=== PATIENT | male | born 1975 | race Caucasian/White ===

== ENCOUNTER 2023-12-02 12:42 | Emergency (ER) | payer OTHER, SELFPAY ==
[2023-12-02 12:56] VITALS: BP 106/73
[2023-12-02 13:20] LABS: COVID-19 Antigen Negative (Negative)
--- NOTE | 2023-12-02 13:29 | ED.GENMED ---
History of Present Illness
General
Chief Complaint: Fatigue
Source: patient
Exam Limitations: none
Time Seen by Provider: 12/02/23 13:27
Nursing documentation reviewed up to this point in time: agreed with
History of Present Illness
History of Present Illness:
48-year-old male past medical history of PTSD anxiety depression presenting to the emergency department today with concerns of exposure to a friend that had COVID. Claims that he was with him over the past few days and tested positive for COVID
today. He came for COVID test. Denies any symptoms at this point. He had 1 COVID vaccination in the past
Past History
Past History
ED Past Medical History: Psychiatric (depression) and Other (opiod abuse on Suboxone, IVDA, prev cellulitis)
ED Past Surgical History: Other (hernia , bilateral inguinal hernia repair in 1995)
Social History
Tobacco: Smoker
Alcohol: None
Drug: Former user
Personal: Single
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
Employment: Employed
Family History
Family History: Negative Diabetes, Hypertension or CAD
Review of Systems
Review of Systems
Allergies reviewed?: Yes
All Other Systems: ROS reviewed and negative except as documented in HPI and ROS
Phy Exam
Physical Exam
Physical Exam:
GENERAL: Alert , in no apparent distress
EYE: pupils equal and reactive
NECK: Supple, no significant adenopathy.
ENT: o/p clr, mmm.
CARDIAC: Regular rate and rhythm .
LUNGS: Normal respirations
ABDOMEN: Soft, without focal tenderness, no r/g, no cvat
NEUROLOGICAL: Alert and oriented, no focal neuro deficits
SKIN: Warm and dry, skin intact.
MUSCULOSKELETAL: No edema, well perfused.
PSYCH: Normal and appropriate interaction.
Course
Orders/Labs/Results
Orders:
Orders
12/02/23 13:02
COVID-19 Antigen Urgent
Source: Nasal Swab
Vital Signs
Initial and Last Documented VS:
Initial Vital Signs
Temp Pulse Resp BP Pulse Ox
99.0 F 92 16 106/73 98
12/02/23 12:56 12/02/23 12:56 12/02/23 12:56 12/02/23 12:56 12/02/23 12:56
Last Documented Vital Signs
Temp Pulse Resp BP Pulse Ox
99.0 F 92 16 106/73 98
12/02/23 12:56 12/02/23 12:56 12/02/23 12:56 12/02/23 12:56 12/02/23 12:56
MDM/Problems Addressed
MDM/Problems Addressed:
48 old male presenting to the emergency department for a COVID test. Currently asymptomatic but was exposed to COVID recently. COVID test is negative here stable for discharge given information about COVID moving forward.
*Critical Care Note
Total Time (30-74mins, 75-104mins- exclusive of procedures): Not Applicable
ED Attending Note
-
Portions of this chart may have been created with voice recognition software.� Occasional wrong word or��sound alike� substitutions may have occurred due to the inherent limitations of voice recognition software.
Discharge Plan
Departure
Patient Disposition: Home (Routine Discharge)
Date of Disposition: 12/02/23
Time of Disposition: 13:30
Patient with high blood pressure during this ER visit?: No
Condition: Good
Covid-19: Not Applicable
Discharge Problem:
Exposure to COVID-19 virus
Instructions: COVID-19 ED
Prescriptions:
No Action
buprenorphine-naloxone [Suboxone] 1 TAB.SL tablet, sublingual
8 mg sublingual BID
escitalopram oxalate 20 MG tablet
20 mg PO DAILY
brexpiprazole [Rexulti] 1 MG tablet
1 mg PO DAILY
tamsulosin 0.4 MG capsule
0.4 mg PO DAILY
amoxicillin 500 MG capsule
500 mg PO Q8H 7 Days Qty: 21 0RF
cephalexin 500 MG capsule
500 mg PO QID Qty: 20 0RF
penicillin V potassium 500 mg tablet
500 mg PO TID Qty: 30 0RF
ibuprofen 600 mg tablet
600 mg PO Q6H PRN (Reason: pain) Qty: 20 0RF
Activity Restrictions/Additional Instructions:
Your COVID test today was negative.
Interventions
Interventions:
*Risk Screen - Suicide Last Done: 12/02/23 13:22
*Neglect/Abuse Screening Last Done: 12/02/23 13:22
*ED COVID-19 Vaccine History Last Done: 12/02/23 12:56
Discharge Date and Time
Print Language: KISWAHILI
== END 2023-12-02 13:40 | disposition home or self-care (01) ==
LOC: EMR 12:42
PROVIDERS: Emergency Medicine; EMERGENCY PHYSICIAN Emergency Medicine; FAMILY PHYSICIAN Family Medicine
DX: Z20.822 Contact with and (suspected) exposure to COVID-19 (principal); R53.83 Other fatigue; F43.10 Post-traumatic stress disorder, unspecified; F41.8 Other specified anxiety disorders; F17.200 Nicotine dependence, unspecified, uncomplicated
CPT/HCPCS: 99282; 87811

== ENCOUNTER 2024-06-23 15:04 | Emergency (ER) | payer SELFPAY ==
[2024-06-23 15:37] VITALS: BP 113/81
[2024-06-23 16:20] VITALS: BMI 23.0
--- NOTE | 2024-06-23 16:22 | ED.GENMED ---
History of Present Illness
General
Chief Complaint: Skin Problem
Source: patient
Exam Limitations: none
Time Seen by Provider: 06/23/24 16:14
History of Present Illness
History of Present Illness:
48yoM with a history of anxiety, depression, and prior substance use (currently on Suboxone, sober since 2019) presenting for evaluation of a suspected wound infection. Patient works in produce. He states he was accidentally cut with a knife at
work 1 week ago. The wound was apparently bleeding for several days after this. He is having some pain in the area and redness and he is worried about infection. No drainage, fevers, chills. He denies any prior history of MRSA. Tdap reportedly
up to date.
Past History
Past History
ED Past Medical History: Psychiatric (depression) and Other (opiod abuse on Suboxone, IVDA, prev cellulitis)
ED Past Surgical History: Other (hernia , bilateral inguinal hernia repair in 1995)
Social History
Tobacco: Smoker
Alcohol: None
Drug: Former user
Personal: Single
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
Employment: Employed
Family History
Family History: Negative Diabetes, Hypertension or CAD
Phy Exam
General Physical Exam
General Presentation: well appearing and no apparent distress
General age: appears stated age
General Skin: warm
General Habitus: normal
General Mental: alert
ENT Exam
ENT Exam: normocephalic
Pulmonary Exam
Pulmonary Exam: no respiratory distress
Neurological Exam
Neurological Exam: alert
Ch[place]is Coma Scale
Eye Opening: Spontaneous
Verbal Response: Oriented
Motor Response: Obeys Commands
GCS Total Score: 15
Skin Exam
Skin Exam: warm/dry and other (Healing cuts to L index finger and R thumb that are scabbed over. There are scattered excoriations to bilateral hands/forearms. There is some erythema to both hands although no warmth present. No drainage or swelling
of digits. ROM intact. )
Course
Vital Signs
Initial and Last Documented VS:
Initial Vital Signs
Temp Pulse Resp BP Pulse Ox
97.8 F 89 16 113/81 98
06/23/24 15:37 06/23/24 15:37 06/23/24 15:37 06/23/24 15:37 06/23/24 15:37
Last Documented Vital Signs
Temp Pulse Resp BP Pulse Ox
97.8 F 89 16 113/81 98
06/23/24 15:37 06/23/24 15:37 06/23/24 15:37 06/23/24 15:37 06/23/24 15:37
MDM/Problems Addressed
Differential Diagnosis Includes:
48yoM here after accidentally cutting himself in the hands with a knife 1 week ago. C/o pain and redness and is worried he has an infection. No f/c. VSS. There are scabbed over cuts on exam with erythema to both hands. No associated warmth,
drainage, swelling. Differential diagnosis includes but is not limited to: laceration, cellulitis, no evidence of abscess/flexor tenosynovitis/NSTI
No convincing evidence of cellulitis on exam although will cover with Keflex for completeness. Advised f/u with PCP and ED return precautions discussed. He expressed understanding and is agreeable to plan. He was discharged in stable condition.
*Critical Care Note
Total Time (30-74mins, 75-104mins- exclusive of procedures): Not Applicable
ED Attending Note
-
Portions of this chart may have been created with voice recognition software.� Occasional wrong word or��sound alike� substitutions may have occurred due to the inherent limitations of voice recognition software.
Discharge Plan
Departure
Patient Disposition: Home (Routine Discharge)
Date of Disposition: 06/23/24
Time of Disposition: 16:25
Patient with high blood pressure during this ER visit?: No
Discharge Problem:
Hand abrasion, infected
Instructions: Cellulitis (Skin Infection), Adult (DC)
Prescriptions:
New
cephalexin 500 mg capsule
500 mg PO Q6H 7 Days Qty: 28 0RF
No Action
buprenorphine-naloxone [Suboxone] 1 TAB.SL tablet, sublingual
8 mg sublingual BID
escitalopram oxalate 20 MG tablet
20 mg PO DAILY
brexpiprazole [Rexulti] 1 MG tablet
1 mg PO DAILY
tamsulosin 0.4 MG capsule
0.4 mg PO DAILY
amoxicillin 500 MG capsule
500 mg PO Q8H 7 Days Qty: 21 0RF
cephalexin 500 MG capsule
500 mg PO QID Qty: 20 0RF
penicillin V potassium 500 mg tablet
500 mg PO TID Qty: 30 0RF
ibuprofen 600 mg tablet
600 mg PO Q6H PRN (Reason: pain) Qty: 20 0RF
Referrals:
[facility] [Provider Group]
[facility] [Outside]
Stand Alone Forms: Return to Work
Activity Restrictions/Additional Instructions:
Take antibiotics as prescribed.
Please follow-up with your family doctor next week. Return to the ER with any worsening symptoms, spreading redness, or fevers.
Interventions
Interventions:
*Risk Screen - Suicide Last Done: 06/23/24 15:37
*General Assessment Last Done: 06/23/24 16:20
*Neglect/Abuse Screening Last Done: 06/23/24 15:37
ED- Fall Risk Assessment Last Done: 06/23/24 16:34
*ED COVID-19 Vaccine History Last Done: 06/23/24 16:20
*Nursing Disposition Last Done: 06/23/24 16:34
ED-Skin Assessment Last Done: 06/23/24 16:24
Discharge Date and Time
Discharge Date/Time: 06/23/24 16:43
Print Language: MOLDOVAN
== END 2024-06-23 16:43 | disposition home or self-care (01) ==
LOC: EMR 15:04
PROVIDERS: EMERGENCY PHYSICIAN Student in an Organized Health Care Education/Training Program; FAMILY PHYSICIAN Family Medicine
DX: S60.519A Abrasion of unspecified hand, initial encounter (principal); L08.9 Local infection of the skin and subcutaneous tissue, unspecified; W26.0XXA Contact with knife, initial encounter; Y99.0 Civilian activity done for income or pay; F41.8 Other specified anxiety disorders; F17.200 Nicotine dependence, unspecified, uncomplicated
CPT/HCPCS: 99282

== ENCOUNTER 2025-04-30 13:31 | Emergency (ER) | payer OTHER, SELFPAY ==
[2025-04-30 13:35] VITALS: BP 108/73
[2025-04-30 13:56] LABS: Hematocrit 43.3 % (39.0-52.0); Hemoglobin 14.6 g/dL (13.0-18.0); Mean Corp Hgb Conc. 33.7 g/dL (33.0-37.0); Mean Corpuscular Volume 93.5 fL (80.0-94.0); Nucleated Red Blood Cells % 0 % (-); Platelet Count 296 10^3/uL (130-400); Red Cell Dist. Width 11.9 % (11.5-14.5)
[2025-04-30 14:21] LABS: ALT (SGPT) 53 U/L (0-50); AST (SGOT) 34 U/L (17-59); Albumin 4.5 g/dl (3.5-5.0); Alkaline Phosphatase 102 U/L (38-126); Blood Urea Nitrogen 19 mg/dl (9-20); Calcium 9.6 mg/dl (8.4-10.2); Carbon Dioxide 29 mmol/L (22-30); Chloride 103 mmol/L (98-107); Glucose 111 mg/dl (70-99); Potassium 4.6 mmol/L (3.5-5.1); Sodium 136 mmol/L (135-145); Total Protein 7.7 g/dl (6.3-8.2); eGFR > 60.00
--- NOTE | 2025-04-30 14:52 | ED.GENMED ---
History of Present Illness
General
Chief Complaint: Crisis Evaluation
Time Seen by Provider: 04/30/25 14:52
History of Present Illness
History of Present Illness:
FOCUSED PAST MEDICAL HISTORY
- PTSD, substance abuse, anxiety/depression, seizures
REVIEW OF OLD RECORDS
- The patient was seen here in 2022 with anxiety, the patient was seen as a medical clearance for incarceration in 2020, the patient was here with conduct disorder in 2019
Note:
CHIEF COMPLAINT(S)
Depression and recent substance use.
HISTORY OF PRESENT ILLNESS
The patient is a 49-year-old male with a history of mental health disorders presenting with worsened depression following discontinuation of medications. The patient reports ceasing Prozac and BuSpar (buspirone) after moving into a recovery house,
without consulting a physician due to difficulty finding one in the area. This cessation led to a significant decline in mood over the past week. The patient was recently expelled from the recovery house due to substance use, specifically fentanyl,
benzodiazepines, and alcohol, with the most recent use occurring today. The patient admits to using alcohol throughout the week and benzodiazepines for the past three days, which coincides with feelings of depression and hopelessness. He reported
experiencing severe depression and is exploring options for inpatient treatment. The patient denies immediate suicidal ideation but describes a severe depressive state, stating, �I have not been feeling good about myself.�
CHRONIC MEDICAL CONDITIONS SIGNIFICANTLY AFFECTING CARE
The patient reports a history of post-traumatic stress disorder (PTSD), bipolar disorder, and anxiety.
SOCIAL DETERMINANTS AFFECTING HEALTH
The patient describes housing instability after being expelled from a recovery house due to substance use. Currently, he has no stable accommodation. He has insurance coverage through [employer] but expresses challenges in accessing continuity
of care. The patient acknowledges alcohol and substance use issues with recent fentanyl, benzodiazepine, and alcohol consumption.
MEDICATIONS
The patient disclosed previously being on Prozac and BuSpar (buspirone) for roughly ten years until recently stopping without medical guidance.
PHYSICAL EXAM
General: Alert, no acute distress.
Skin: Warm, dry.
Head: Normocephalic, atraumatic.
Neck: Supple, trachea midline.
Eye, Ears, Nose, Mouth, and Throat: Oral mucosa moist.
Cardiovascular: Normal peripheral perfusion, no edema.
Respiratory: Respirations are non-labored.
Gastrointestinal: Abdomen nondistended.
Back: Normal range of motion, normal alignment.
Musculoskeletal: Normal range of motion, normal strength.
Neurological: Alert and oriented to person, place, time, and situation, no focal neurological deficit observed.
Psychiatric: Cooperative, somewhat of a flat depressed affect, does not appear intoxicated
PROBLEM LIST
Acute Problems:
- Depression with recent medication discontinuation and substance use.
- Housing instability.
- Recent substance use (fentanyl, benzodiazepines, alcohol).
PLAN
- Assess the possibility of inpatient treatment and coordinate with [facility] and crisis intervention services for possible admission.
- Consider medical detox for substance use if indicated.
- Utilize network resources to establish a treatment plan that includes mental health support for PTSD, bipolar disorder, and anxiety.
- Ensure social support systems, including housing assistance, are explored.
DIFFERENTIAL DIAGNOSIS
The Differential Diagnosis includes, in no particular order and is not limited to:
- Major Depressive Disorder
- Substance-Induced Mood Disorder
- Bipolar Disorder
- Generalized Anxiety Disorder
- Post-Traumatic Stress Disorder (PTSD)
- Alcohol Use Disorder
- Opioid Use Disorder
- Benzodiazepine Use Disorder
- Adjustment Disorder
- Acute Stress Disorder
LABS
- CBC and chemistries unremarkable
UPDATE
-SUMMARY OF ENCOUNTER
The patient was seen in the emergency department for severe depression exacerbated by recent discontinuation of medication and polysubstance use. The patient stopped taking Prozac (fluoxetine) and buspirone after moving to a recovery house and has
since experienced a significant decline in mood, exacerbated by substance use including fentanyl, benzodiazepines, and alcohol. The patient was seeking options for inpatient treatment due to severe depressive symptoms and housing instability
following expulsion from the recovery house.
DISPOSITION
Discharge to [facility].
ASSESSMENT
Severe depression with polysubstance abuse.
PLAN
Assess the possibility of inpatient treatment and coordinate with [facility] for admission to [facility]. Consider options for substance use detoxification and establish a treatment plan for mental health support addressing PTSD, bipolar disorder,
and anxiety.
MANAGEMENT OF THE PATIENTS CARE WAS DISCUSSED WITH
Discussion of management with [facility].
PATIENT EDUCATION AND COUNSELING
The patient was informed about the importance of medication adherence and the availability of mental health and substance abuse support services.
FOLLOW-UP INSTRUCTIONS
Follow up with [facility] for inpatient treatment and continue engagement with mental health services.
MEDICAL DECISION MAKING
1. Number and Complexity of Problems Addressed: Chronic conditions affecting care include history of PTSD, bipolar disorder, anxiety, severe depression, and polysubstance abuse. Differential Diagnosis includes Major Depressive Disorder,
Substance-Induced Mood Disorder, Bipolar Disorder, Generalized Anxiety Disorder, PTSD, Alcohol Use Disorder, Opioid Use Disorder, Benzodiazepine Use Disorder, Adjustment Disorder, and Acute Stress Disorder.
2. Data:
Category 3
Discussion of management with [facility] regarding admission to [facility].
3. Risk:
Prescription drug management and decisions regarding detoxification for substance use were considered. Care significantly affected by social determinants of health, such as housing instability and difficulty accessing continuity of care.
DIAGNOSIS
Severe Depression (ICD-10: F32.9)
Polysubstance Abuse (ICD-10: F19.20)
Past History
Past History
ED Past Medical History: Psychiatric (depression) and Other (opiod abuse on Suboxone, IVDA, prev cellulitis)
ED Past Surgical History: Other (hernia , bilateral inguinal hernia repair in 1995)
Social History
Tobacco: Smoker
Alcohol: None
Drug: Former user
Personal: Single
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
Employment: Employed
Family History
Family History: Negative Diabetes, Hypertension or CAD
Phy Exam
Physical Exam
Physical Exam:
See HPI
Course
Orders/Labs/Results
Orders:
Orders
04/30/25 13:43
Alcohol Urgent
Complete Blood Count/With Diff Urgent
Comprehensive Metabolic Panel Urgent
04/30/25 15:06
Add On- LAB Urgent
Tests Added?: alcohol
Crisis Consult Urgent
Reason for Consult: severe depression
04/30/25 17:45
Fentanyl, Urine Urgent
Urine Drug Abuse Screen Urgent
Date Specimen was Collected: 04/30/25
Time Specimen was Collected: 17:41
Abnormal Lab Results
04/30/25 04/30/25
13:43 17:45
RBC 4.63 L 10^6/uL
(4.70-6.10)
MCH 31.5 H pg
(27.0-31.0)
Glucose 111 H mg/dl
(70-99)
ALT 53 H U/L
(0-50)
Ur Buprenorphine Positive H
(Negative)
Urine Fentanyl Screen Positive H
(Negative)
Ur Amphetamines Screen Positive H
(Negative)
U Benzodiazepines Scrn Positive H
(Negative)
U Marijuana (THC) Screen Positive H
(Negative)
04/30/25 13:43
04/30/25 13:43
Vital Signs
Initial and Last Documented VS:
Initial Vital Signs
Temp Pulse Resp BP Pulse Ox
36.1 C 110 16 108/73 98
04/30/25 13:35 04/30/25 13:35 04/30/25 13:35 04/30/25 13:35 04/30/25 13:35
Last Documented Vital Signs
Temp Pulse Resp BP Pulse Ox
36.3 C 86 20 128/81 98
04/30/25 19:06 04/30/25 19:06 04/30/25 19:06 04/30/25 19:06 04/30/25 19:06
*Pulse Oximetry
SaO2: 98
Oxygen Mode of Delivery: Room air
Patient hypoxic: no
*Critical Care Note
Total Time (30-74mins, 75-104mins- exclusive of procedures): Not Applicable
ED Attending Note
-
Portions of this chart may have been created with voice recognition software.� Occasional wrong word or��sound alike� substitutions may have occurred due to the inherent limitations of voice recognition software.
Discharge Plan
Departure
Patient Disposition: Acute Rehab Facility
Date of Disposition: 04/30/25
Time of Disposition: 18:38
Discharge Problem:
Depression
Instructions: Depression, Adult (DC)
Prescriptions:
No Action
buprenorphine-naloxone [Suboxone] 1 TAB.SL tablet, sublingual
8 mg sublingual BID
escitalopram oxalate 20 MG tablet
20 mg PO DAILY
brexpiprazole [Rexulti] 1 MG tablet
1 mg PO DAILY
tamsulosin 0.4 MG capsule
0.4 mg PO DAILY
amoxicillin 500 MG capsule
500 mg PO Q8H 7 Days Qty: 21 0RF
cephalexin 500 MG capsule
500 mg PO QID Qty: 20 0RF
penicillin V potassium 500 mg tablet
500 mg PO TID Qty: 30 0RF
ibuprofen 600 mg tablet
600 mg PO Q6H PRN (Reason: pain) Qty: 20 0RF
cephalexin 500 mg capsule
500 mg PO Q6H 7 Days Qty: 28 0RF
Referrals:
NONE,* [Family Provider, Internal Medicine]
Activity Restrictions/Additional Instructions:
Proceed to [facility] at this time. Return if worse or other concerns.
Interventions
Interventions:
*Risk Screen - Suicide Last Done: 04/30/25 13:35
*General Assessment Last Done: 04/30/25 13:35
*Neglect/Abuse Screening Last Done: 04/30/25 13:35
*ED- Fall Risk Assessment Last Done: 04/30/25 19:07
*ED COVID-19 Vaccine History Last Done: 04/30/25 19:07
*ED Influenza Vaccine History Last Done: 04/30/25 19:07
*Nursing Disposition Last Done: 04/30/25 19:07
ED-Psychological Assessment Last Done: 04/30/25 19:07
Discharge Date and Time
Discharge Date/Time: 04/30/25 19:11
Print Language: AMHARIC
[2025-04-30 19:06] VITALS: BP 128/81
== END 2025-04-30 19:11 ==
LOC: EMR 13:31
PROVIDERS: Emergency Medicine; EMERGENCY PHYSICIAN Emergency Medicine
DX: F32.A Depression, unspecified (principal); F19.10 Other psychoactive substance abuse, uncomplicated; F41.9 Anxiety disorder, unspecified; F17.200 Nicotine dependence, unspecified, uncomplicated; R56.9 Unspecified convulsions; Z59.819 Housing instability, housed unspecified
CPT/HCPCS: 99283; 80053; 80306; 80307; 82077; 85025